=== PATIENT | female | born 1965 | race Hispanic/Latino ===

== ENCOUNTER 2018-09-03 16:53 | Emergency (ER) | payer OTHER ==
[~2018-09-03] VITALS: Ht 167.6 cm; Wt 59.0 kg
[2018-09-03 17:39] LABS: PLATELET COUNT 424 K/uL (152-353)
[2018-09-03 17:47] LABS: POTASSIUM 3.4 mmol/L (3.6-5.2)
[2018-09-03 22:29] VITALS: BP 111/71; TEMP 98.2
== END 2018-09-03 22:31 | disposition home or self-care (01) ==
LOC: ED 16:53
DX: R06.02 Shortness of breath (principal); T36.0X5A Adverse effect of penicillins, initial encounter
CPT/HCPCS: 36415; 80053; 81000; 82150; 82550; 82553; 83690; 84484; 85027; 93005; 96365; 96374; 96375; 99284; J2405; J2930; J3410; Q0177

== ENCOUNTER 2019-11-08 16:04 | Outpatient (CLI) | payer OTHER | END 2019-11-08 20:25 | disposition home or self-care (01) | LOC: RAD 16:04 | DX: Z00.00 Encounter for general adult medical examination without abnormal findings (principal); I10 Essential (primary) hypertension; R10.9 Unspecified abdominal pain; Z79.899 Other long term (current) drug therapy ==

== ENCOUNTER 2019-12-26 06:51 | Outpatient (CLI) | payer OTHER | END 2019-12-26 19:08 | disposition home or self-care (01) | LOC: LABW 06:51 | DX: E55.9 Vitamin D deficiency, unspecified (principal); M81.0 Age-related osteoporosis without current pathological fracture; Z79.899 Other long term (current) drug therapy | CPT/HCPCS: 82340 ==

== ENCOUNTER 2020-02-04 10:07 | Outpatient (CLI) | payer OTHER | END 2020-02-04 22:49 | disposition home or self-care (01) | LOC: RAD 10:07 | DX: M25.561 Pain in right knee (principal); M25.562 Pain in left knee ==

== ENCOUNTER 2020-10-08 13:32 | Outpatient (CLI) | payer OTHER | END 2020-10-08 19:10 | disposition home or self-care (01) | LOC: CT 13:32 | DX: R10.9 Unspecified abdominal pain (principal); K21.9 Gastro-esophageal reflux disease without esophagitis | CPT/HCPCS: 36415; 82565; 84520; Q9963 ==

== ENCOUNTER 2020-11-19 10:15 | Outpatient (CLI) | payer OTHER | END 2020-11-19 19:36 | disposition home or self-care (01) | LOC: MAMMO 10:15 | PROVIDERS: ATTEND Obstetrics & Gynecology | DX: Z12.31 Encounter for screening mammogram for malignant neoplasm of breast (principal) ==

== ENCOUNTER 2021-02-23 12:25 | Outpatient (CLI) | payer OTHER | END 2021-02-23 20:16 | disposition home or self-care (01) | LOC: RAD 12:25 | PROVIDERS: ATTEND Orthopaedic Surgery | DX: M79.641 Pain in right hand (principal); M79.642 Pain in left hand ==

== ENCOUNTER 2021-02-27 13:48 | Outpatient (CLI) | payer OTHER | END 2021-02-27 22:45 | disposition home or self-care (01) | LOC: INF 13:48 | PROVIDERS: ATTEND Internal Medicine | DX: Z23 Encounter for immunization (principal) | CPT/HCPCS: 96372 ==

== ENCOUNTER 2021-03-21 15:47 | Outpatient (CLI) | payer OTHER | END 2021-03-21 19:59 | disposition home or self-care (01) | LOC: INF 15:47 | PROVIDERS: ATTEND Internal Medicine | DX: Z23 Encounter for immunization (principal) | CPT/HCPCS: 96372 ==

== ENCOUNTER 2021-04-22 08:01 | Outpatient (CLI) | payer OTHER | END 2021-04-22 20:55 | disposition home or self-care (01) | LOC: US 08:01 | PROVIDERS: ATTEND Nurse Practitioner Family | DX: R07.9 Chest pain, unspecified (principal); K21.9 Gastro-esophageal reflux disease without esophagitis; E78.5 Hyperlipidemia, unspecified; I10 Essential (primary) hypertension; R06.02 Shortness of breath ==

== ENCOUNTER 2021-04-30 08:57 | Outpatient (CLI) | payer OTHER | END 2021-04-30 22:07 | disposition home or self-care (01) | LOC: CT 08:57 | PROVIDERS: ATTEND Nurse Practitioner Family | DX: R10.11 Right upper quadrant pain (principal) | CPT/HCPCS: 36415; 82565; 84520; Q9963 ==

== ENCOUNTER 2021-08-16 12:42 | Outpatient (CLI) | payer OTHER | END 2021-08-16 19:19 | disposition home or self-care (01) | LOC: RAD 12:42 | PROVIDERS: ATTEND Nurse Practitioner Family | DX: G60.8 Other hereditary and idiopathic neuropathies (principal); M54.5 Low back pain; M81.0 Age-related osteoporosis without current pathological fracture ==

== ENCOUNTER 2022-03-25 07:49 | Outpatient (CLI) | payer OTHER | END 2022-03-25 19:36 | disposition home or self-care (01) | LOC: LABW 07:49 | PROVIDERS: ATTEND Internal Medicine Rheumatology | DX: D89.89 Other specified disorders involving the immune mechanism, not elsewhere classified (principal); M19.90 Unspecified osteoarthritis, unspecified site; M25.50 Pain in unspecified joint; M35.01 Sjogren syndrome with keratoconjunctivitis; M81.0 Age-related osteoporosis without current pathological fracture | CPT/HCPCS: 36415; 82565 ==

== ENCOUNTER 2022-08-02 10:13 | Outpatient (CLI) | payer OTHER | END 2022-08-02 19:12 | disposition home or self-care (01) | LOC: RAD 10:13 | PROVIDERS: ATTEND Nurse Practitioner Family | DX: M19.041 Primary osteoarthritis, right hand (principal); M19.042 Primary osteoarthritis, left hand; M54.2 Cervicalgia; M54.51 Vertebrogenic low back pain; M81.0 Age-related osteoporosis without current pathological fracture ==

== ENCOUNTER 2022-08-12 12:43 | Outpatient (CLI) | payer OTHER | END 2022-08-12 19:38 | disposition home or self-care (01) | LOC: MRI 12:43 | PROVIDERS: ATTEND Physician Assistant | DX: M50.20 Other cervical disc displacement, unspecified cervical region (principal) ==

== ENCOUNTER 2023-03-07 07:59 | Outpatient (CLI) | payer OTHER | END 2023-03-07 19:08 | disposition home or self-care (01) | LOC: RAD 07:59 | PROVIDERS: ATTEND Nurse Practitioner Family | DX: M25.531 Pain in right wrist (principal) ==

== ENCOUNTER 2023-09-16 09:53 | Outpatient (CLI) | payer OTHER | END 2023-09-16 19:58 | disposition home or self-care (01) | LOC: CT 09:53 | PROVIDERS: ATTEND Internal Medicine | DX: R59.0 Localized enlarged lymph nodes (principal) | CPT/HCPCS: 36415; 82565; 84520; Q9963 ==